=== PATIENT | male | born 1965 | race Caucasian/White ===

== ENCOUNTER → 2018-01-24 09:23 | Outpatient (CLI) | payer BC, SELFPAY ==
--- NOTE | 2018-01-24 | DI.RAD.S_ITS ---
PROCEDURE: XR HIP W PEL IF DONE RT 2V INDICATIONS: RIGHT HIP PAIN TECHNIQUE: AP pelvis with lateral view(s) of the right hip(s). COMPARISON: None. FINDINGS: Bones: No fractures or dislocations. Pelvic ring appears intact. No suspicious bony lesions. There are mild to moderate degenerative changes of the hip joints bilaterally as evidenced by joint space narrowing, periarticular sclerosis, and osteophyte formation. There are multilevel degenerative changes of the lumbar spine. Soft tissues: Surgical clips project medial and inferior to the inferior pubic rami bilaterally, possibly from prior vasectomy. The visualized bowel gas pattern is normal. No suspicious soft tissue calcifications. IMPRESSION: Mild to moderate degenerative changes of the hip joints bilaterally. Dictated by: Roberto Carlos Webster M.D. on 01/24/2018 at 12:44 Approved by: Roberto Carlos Webster M.D. on 01/24/2018 at 12:46
== END ==
PROVIDERS: Family Provider Family Medicine; PCP Family Medicine; Visit Provider Family Medicine
DX: M25.551 Pain in right hip (principal); M16.0 Bilateral primary osteoarthritis of hip
CPT/HCPCS: 73502

== ENCOUNTER → 2018-02-27 11:01 | Outpatient (CLI) | payer BC, SELFPAY ==
--- NOTE | 2018-02-27 | DI.US.S_ITS ---
PROCEDURE: US ABDOMEN COMPLETE INDICATIONS: ABNORMAL LFTS TECHNIQUE: Real-time scanning was performed of the abdominal and retroperitoneal organs, with image documentation. COMPARISON: None. FINDINGS: Liver: Liver is diffusely increased in echogenicity. No focal hepatic abnormalities identified. Normal hepatic size. Gallbladder: No gallstones identified. Normal gallbladder wall. No pericholecystic fluid. Negative sonographic Méndez sign. Biliary ducts: Intrahepatic bile ducts are non-dilated. Extrahepatic bile duct caliber measures 6.5 mm. Normal is 6-7 mm or less in diameter, or 10 mm or less post-cholecystectomy. Pancreas: Not visualized. Spleen: Spleen is normal in size and homogeneous in echotexture. Kidneys: Kidneys are normal in size and echotexture. Right kidney measures 9.7 cm long; left kidney measures 11.3 cm long. No hydronephrosis or nephrolithiasis. No solid masses. Aorta: Visualized aorta is normal in caliber at less than 3 cm. Iliacs: Proximal common iliac arteries are normal in caliber at less than 2.5 cm. IVC: Intrahepatic inferior vena cava is patent. Miscellaneous: No free abdominal fluid. IMPRESSION: Increased hepatic echogenicity noted possibly related to hepatic steatosis but other sources of hepatocellular disease cannot be excluded. Recommend clinical correlation. Dictated by: Torrey Archibald [facility] Interpreted: Gloria Coleman MD on 02/27/2018 at 13:07 Approved by: Gloria Coleman M.D. on 02/28/2018 at 9:09
--- NOTE | 2018-02-27 | DI.MRI.S_ITS ---
PROCEDURE: MR HIP RT WO CON INDICATIONS: RIGHT HIP PAIN TECHNIQUE: Noncontrast coronal T1 spin echo and STIR through the bony pelvis. Coronal and axial T2 fast spin echo with fat saturation, sagittal T1 spin echo, and oblique axial T2 fast spin echo with fat saturation through the hip. COMPARISON: None. FINDINGS: Image quality: Excellent. Bones and joints: Diffusely heterogeneous marrow signal throughout the pelvic bone and visualized lower lumbar vertebral bodies are seen. Mildly heterogeneous marrow signal in bilateral proximal femoral shafts are also seen. No cortical erosion or destruction. No periosteal reaction. No acute fracture or dislocation. Mild to moderate bilateral hip joint osteoarthritis is seen. No avascular necrosis of the femoral heads. Prominence of anterior femoral head neck junction is seen Tendons and ligaments: The gluteus medius and minimus tendons appear intact, without associated muscle atrophy. The nearby proximal iliotibial band also appears intact. The iliopsoas tendon appears intact, without adjacent bursal fluid collections or evidence for impingement syndrome. The origin of the hamstring tendon is intact at the ischial tuberosity, as well as the associated sacrotuberous ligament. The straight and reflected heads of the rectus femoris muscle origin appear intact, as well as the conjoint tendon. The ligamentum teres appears intact where visualized. Labrum and cartilage: There is suggestion of superior anterior right hip labral tearThe alpha angle of the femur is increased and measures approximately 105?. Normal limits in at less than 55 degrees. Soft tissues: Visualized muscles demonstrate normal bulk and internal signal. Quadratus femoris muscle demonstrates no internal edema to suggest ischiofemoral impingement. The proximal sciatic neurovascular bundle appears normal adjacent to the hamstring tendons. No free pelvic fluid. Bladder wall thickness is normal. Genitourinary structures and bowel loops appear normal where visualized. IMPRESSION: 1. Prominence of right anterior femoral head neck junction with increased alpha angle. Suggestive of cam-type femoral acetabular impingement. Suggestion of superior anterior right hip labral tear. 2. Osteoarthritic changes in the right hip joint. No fracture or dislocation. No evidence of avascular necrosis. 3. Nonspecific diffusely heterogeneous marrow signal throughout visualized bony pelvis and proximal bilateral femoral shafts as well as the lower lumbar spine vertebral bodies. Finding may represent hematopoietic marrow. Dictated by: Luan Figueroa M.D. on 02/27/2018 at 16:35 Approved by: Luan Figueroa M.D. on 02/27/2018 at 16:46
== END ==
PROVIDERS: Family Provider Family Medicine; PCP Family Medicine; Visit Provider Family Medicine
DX: M25.551 Pain in right hip (principal); M16.11 Unilateral primary osteoarthritis, right hip; R79.89 Other specified abnormal findings of blood chemistry
CPT/HCPCS: 73721; 76700

== ENCOUNTER → 2018-04-21 11:19 | Outpatient (CLI) | payer BC, SELFPAY | PROVIDERS: Family Provider Family Medicine; PCP Family Medicine; Visit Provider Family Medicine | DX: E29.1 Testicular hypofunction (principal) | CPT/HCPCS: 36415; 84403 ==

== ENCOUNTER → 2021-03-22 07:50 | Outpatient (CLI) | payer BC, SELFPAY ==
[2021-03-22 08:31] LABS: COVID19 -Nasal RAPID Negative (Negative)
== END ==
PROVIDERS: Visit Provider Nurse Practitioner Family
DX: Z20.822 Contact with and (suspected) exposure to COVID-19 (principal)
CPT/HCPCS: 87635

== ENCOUNTER → 2021-05-10 16:00 | Outpatient (CLI) | payer OTHER, SELFPAY ==
[2021-05-10 17:00] LABS: COVID19 -Nasal RAPID Negative (Negative)
== END ==
PROVIDERS: Visit Provider Family Medicine Sleep Medicine
DX: Z20.822 Contact with and (suspected) exposure to COVID-19 (principal)
CPT/HCPCS: 87635; C9803

== ENCOUNTER 2021-05-12 13:24 | Day surgery (SDC) | payer OTHER, SELFPAY ==
[2021-05-12] VITALS (8 sets, daily range): BP systolic 130–160; BP diastolic 75–104; PULSE 92–110; RESP 9–18; TEMP 36.3–37.1; O2SAT 4–98; BMI 31.6
--- NOTE | 2021-05-12 | PATH_ITS ---
[facility] Accession Number: [id number] . 01 Material submitted: . colon - SIGMOID #1,POLYP 4MM, #2 POLYP 1CM . 02 Diagnosis: Sigmoid x1, Polyp, 4 mm, #2 Polyp, 1 cm: Portions of tubular adenoma x3. Hyperplastic polyp x1. MRV 05/15/2021 1318 Local . 02 Electronically signed: . Deanna Lucero MD, Pathologist NPI- [id number] . 01 Gross description: . SIGMOID #1,POLYP 4MM, #2 POLYP 1CM: Received in formalin are multiple fragment(s) of castillo, soft tissue measuring 1.4 x 0.3 x 0.2 cm in aggregate submitted entirely in 1 cassette(s) /TR 05/13/2021 1703 Local . 02 Pathologist provided ICD-10: K63.5, Z12.11 . 02 CPT . 632228 Specimen Comment: A courtesy copy of this report has been sent to [phone] Performed at: 01 [facility] [address] [facility], [place], [place] [id number] MD Min Vallejo MD Phone: [phone] Performed at: 02 [facility] [address] [place], [place] [id number] MD Lili Palm MD Phone: [phone]
--- NOTE | 2021-05-12 12:30 | P.HP_ITS ---
History of Present Illness History of Present Illness Date Patient Seen: 05/12/21 Chief complaint: [facility] [place] Patient History Comment: 55 Years Old Male seen today for consideration of a screening colonoscopy. There have been no lower GI symptoms suggesting disease such as change in bowel habits, bleeding, abdominal pain or anemia. There's been no family history of colon cancer or colon polyps. Overall health issues have been stable, including no major cardiac events for at least 6 weeks. Past Medical History: Elevated LFTs HYPERLIPIDEMIA HYPERTENSION Testosterone deficiency Libido, decreased LUMBAR RADICULOPATHY Hip pain, right Obesity Past Surgical History: Right L4-5 hemilaminotomy x 2 L3-L4 surgery Septic hip (03/2003) Family History: Father: Diabetes, Hypertriglyceridemia, Hypertension Mother: Hypertriglyceriemia,Alzheimers Siblings: Social History: Marital Status: Children: Occupation: [employer], master captain Household Members: Dara (), dog Education: Medical contact: Dara Family & Social History Tobacco & Substance use: Smoking Status Former smoker Meds Home Medications and Allergies Home Medications Medication Instructions Recorded Confirmed Type losartan 50 mg tablet 100 mg PO QDAY #0 tab 01/14/05/12/21 History Allergies Allergy/AdvReac Type Severity Reaction Status Date / Time aspirin [ASPIRIN] Allergy Unknown Verified 05/12/21 14:17 dicloxacillin [DICLOXACILLIN] Allergy Unknown Verified 05/12/21 14:17 Penicillins [PENICILLINS] Allergy Unknown Verified 05/12/21 14:17 Review of Systems Review of Systems Narrative: All remaining ROS were reviewed and negative except as addressed. Exam Narrative Exam Narrative: GENERAL: Alert and oriented, appearing stated age and in no acute distress. HEENT: Head normocephalic/atraumatic. Extraocular movements intact. LUNGS: Clear to ausculation bilaterally, no wheezes, rhonchi or rales. CV: Normal S1 and S2 with regular rate and rhythm, no audible murmurs, rubs or gallops. ABDOMEN: Soft, non-tender, non-distended, no organomegaly. Positive bowel sounds. EXTREMITIES: No clubbing, cyanosis, or edema. NEURO: Cranial nerves II through XII grossly intact, no focal deficits. PSYCH: Alert and oriented x 3. SKIN: No concerning lesions. Assessment & Plan Assessment & Plan narrative: 1. Screening for colon cancer Plan for colonoscopy. The nature and character of the procedure as well as anticipated results were discussed. The possibility of not completing the procedure was also discussed. Possible complications including aspiration pneumonia, bleeding, perforation and reaction to medications either for sedation or preparation and missed lesions were discussed. Questions were answered and proceeding to the colonoscopy was elected. Informed consent signed. I sincerely appreciate the referral allowing me to participate in this patient's care. Please contact me with any questions or concerns.
--- NOTE | 2021-05-12 12:34 | PM.OP.COLON ---
Operative Date/Time/Diagnoses Date of procedure: 05/12/21 Procedure Notes SCOAP/Timeout: 3:04 p.m. Procedure in detail: ENDOSCOPIST: Allyn Lucas MD Sedation RN: Carmen Cordova RN Sedation start time: 3:05 p.m. Sedation end time: 3:48 p.m. PROCEDURE: Colonoscopy with biopsy INDICATIONS: 1. Screening for colon cancer MEDICATION: Levsin 0.125 mg sublingual, incremental doses of Versed and fentanyl until appropriate level sedation achieved. ASA CLASS: 2 CECAL WITHDRAWAL TIME: 19 minutes COMPLICATIONS: None. EXTENT OF PROCEDURE: Cecum. QUALITY OF PREP: Good with portions of liquid stool. PROCEDURE: Prior to insertion of the colonoscope, a digital rectal examination was accomplished with circumferential palpation of the distal rectal mucosa without significant findings being noted. The high-definition colonoscope was passed into the rectum in the usual fashion and advanced over to the cecum without difficulty. The ileocecal valve, appendiceal stoma, and medial wall all could be inspected and no abnormalities were seen. ASCENDING COLON: As the colonoscope was withdrawn, care was taken to expose and inspect the haustral folds and no abnormalities were seen. HEPATIC FLEXURE: Normal, no polyps, diverticula or other abnormalities. TRANSVERSE COLON: Normal, no polyps, diverticula or other abnormalities. DESCENDING COLON: Normal, no polyps, diverticula or other abnormalities. SIGMOID COLON: A 4 mm polyp was seen and removed with cold biopsy forceps, a 1 cm polyp was seen and removed in a similar fashion, excellent hemostasis. Otherwise, no diverticulosis or other abnormalities. RECTUM: Normal. J maneuver was produced. There was no significant perianal disease. The J maneuver was broken. The remainder of the rectum was inspected and there was moderate external hemorrhoid disease. The scope was withdrawn. IMPRESSION: 1. Sigmoid polyp x2, 4 mm to 10 mm, removed with cold biopsy forceps from excellent hemostasis 2. External hemorrhoids, nonthrombosed PLAN: 1. Follow-up in clinic status post pathology results. The possibility of a missed lesion including a malignancy has been discussed with the patient previously. Potential alarm symptoms have been discussed and should be reported immediately.
[2021-05-12] MEDS: LACTATED RINGERS 1,000 ML 200 ML IV ×2 (14:10→16:52)
[2021-05-12] MEDS: fentaNYL 250 MCG/5 ML INJ IV (15:29)
[2021-05-12] MEDS: MIDAZOLAM 5 MG/5 ML VIAL IV (15:29)
--- NOTE | 2021-05-12 16:18 | SUR.PHASEI ---
Addendum entered by Marya Jaramillo R.N. 05/12/21 16:45: 1630-Arouses briefly, speaks few words, returns to sleep. 1635-Report off to Helena Drake RN. Original Note: 05/12/21-1615-Dr. Lucas here and made aware of patinet unresponsive to stimuli, and rt arm swollen/iv infiltrated. iv out . new iv placed left forearm / wrist area and ivf resumed. 1625-repositioned airway. patient beginning to arouse to stimuli,attempt to reorient. fell back asleep.
--- NOTE | 2021-05-12 16:48 | SUR.PHASEI ---
Assumed care of patient at 1640 from Freida Patten; patient sedated still but responsive to verbal stimuli; drinking juice when prompted. Abdomen soft, non-distended. Right forearm slightly swollen from IV infiltration during procedure. Patient denies pain and no redness or drainage noted. Removed patient from oxygen via nasal cannula at 4 liters to assess room air saturation.
--- NOTE | 2021-05-12 16:56 | SUR.PREOP ---
Patient maintaining oxygen saturation at 93% on room air. RR even and unlabored with a rate of 12. No distress noted.VSS.
== END 2021-05-12 17:24 | disposition home or self-care (01) ==
PROVIDERS: PCP Student in an Organized Health Care Education/Training Program; Referring Provider Student in an Organized Health Care Education/Training Program; Visit Provider Student in an Organized Health Care Education/Training Program
PROC: 0DJD8ZZ Inspection of Lower Intestinal Tract, Via Natural or Artificial Opening Endoscopic (ICD-10-PCS; CPT 45378; principal; 2021-05-12 15:15)
DX: Z12.11 Encounter for screening for malignant neoplasm of colon (principal); I10 Essential (primary) hypertension; E78.5 Hyperlipidemia, unspecified; D12.5 Benign neoplasm of sigmoid colon
CPT/HCPCS: 45380; J2250; J3010

== ENCOUNTER → 2022-03-07 07:48 | Outpatient (CLI) | payer OTHER, SELFPAY ==
--- NOTE | 2022-03-07 | DI.ECHO.S_ITS ---
[facility] +---------+ : : [address] : [place] [address] : : : : [id number] : : : : Phone: [phone]+ Echocardiogram Report + + :Name: CAROLYN COTTRELL Study Date: 03/07/2022 Height: 70 in : :[facility] ReadingLocation: Weight: 215 lb : : Gender: Male BSA: 2.2 m2 : :: 1965 Age: 56 yrs BP: 145/82 mmHg: :Reason For Study: ABNL EKG : : Performed By: Gómez Cortés : :Referring: DEWEY EDWARDS : + + Interpretation Summary 1) Mildly increased left ventricular thickness (concentric) with normal size, normal wall motion, and normal systolic function (EF 60-65%). 2) Normal right ventricular size and function. 3) No significant valvular abnormalities. 4) No prior Echo available for comparison. Procedure: A two-dimensional transthoracic echocardiogram with color flow and Doppler was performed. The study quality was technically adequate. Comparison is made with the echocardiogram of 01/28/09. The patient was in normal sinus rhythm during the exam. Left Ventricle: The left ventricle is normal in size. Left ventricular wall thickness is mildly increased. There is no echo evidence for significant left ventricular outflow tract obstruction. The ejection fraction is estimated to be 60-65%. There are no focal wall motion abnormalities. Diastolic parameters suggest a relaxation abnormality of the left ventricle, consistent with probable normal filling pressures. Right Ventricle: The right ventricle is normal in size and function. Atria: Both atria are normal in size. There is no Doppler evidence for an atrial septal defect. Mitral Valve: There is mild mitral annular calcification. There is trace mitral regurgitation. Aortic Valve: The aortic valve opens well. There is no aortic valve stenosis. No aortic regurgitation is present. Tricuspid Valve: The tricuspid valve is normal in structure and function. No tricuspid regurgitation. Pulmonary artery pressures cannot be estimated because of the lack of a measurable TR jet velocity but the IVC suggests a CVP of around 3 mmHg. Pulmonic Valve: The pulmonic valve leaflets are thin and pliable; valve motion is normal. There is no pulmonic valvular regurgitation. Great Vessels: The aortic root is normal size. The dimensions of the ascending aorta are normal. The pulmonary artery is normal size. The IVC is of normal diameter and collapses greater than 50% with a sniff. This suggests a low right atrial pressure of 3 mm Hg. Pericardium/ Pleura There is no pericardial effusion. There is no pleural effusion. MMode/2D Measurements & Calculations LVIDd: 4.5 cm LVOT diam: 2.1 cm LVIDs: 3.0 cm Ao root diam: 3.2 cm FS: 32.3 % asc Aorta Diam: 3.1 cm EPSS: 0.24 cm Ao Arch Diam (Prox Trans): 3.0 cm IVSd: 1.1 cm LVPWd: 1.4 cm LV sevilla. diameter/BSA (cm/m^2): 2.1 LV sys. diameter/BSA (cm/m^2): 1.4 LA A2 area: 20.3 cm2 RA long axis: 4.9 cm LA A4 area: 24.6 cm2 RA area: 16.0 cm2 LA length (vol): 6.2 cm RA vol: 44.7 ml LA vol: 68.6 ml RA : 20.8 ml/m2 LA vol index: 31.9 ml/m2 IVC diam: 2.0 cm TAPSE: 1.9 cm Doppler Measurements & Calculations Ao V2 max: 159.1 cm/sec LVOT Max Ten: 131.1 cm/sec Ao V2 mean: 123.5 cm/sec LV V1 max P.9 mmHg Ao max P.1 mmHg LV V1 VTI: 23.0 cm Ao mean P.5 mmHg RICHARD(I,D): 3.0 cm2 Ao V2 VTI: 27.3 cm RICHARD(V,D): 2.9 cm2 sev ratio: 0.84 RICHARD indexed to BSA (cm^2/m^2): 1.4 MV E max ten: 61.5 cm/sec PA V2 max: 107.0 cm/sec MV A max ten: 82.6 cm/sec PA V2 mean: 75.2 cm/sec MV E/A: 0.75 PA mean P.5 mmHg Med Peak E' Ten: 4.7 cm/sec PA pr(Accel): 46.5 mmHg E/E' med: 13.0 Lat Peak E' Ten: 6.5 cm/sec E/E' lat: 9.5 E/e' average: 11.2 MV dec time: 0.23 sec SV(LVOT): 82.1 ml Reading Physician:12:33 PM
== END ==
PROVIDERS: PCP Registered Nurse; Referring Provider Registered Nurse; Visit Provider Registered Nurse
DX: R94.31 Abnormal electrocardiogram [ECG] [EKG] (principal); I34.81 Nonrheumatic mitral (valve) annulus calcification
CPT/HCPCS: 93306

== ENCOUNTER → 2022-03-14 09:49 | Outpatient (CLI) | payer OTHER, SELFPAY ==
[2022-03-14 10:28] LABS: COVID19 -Nasal RAPID Negative (Negative)
== END ==
PROVIDERS: PCP Registered Nurse; Referring Provider Radiology Diagnostic Radiology; Visit Provider Radiology Diagnostic Radiology
DX: Z20.822 Contact with and (suspected) exposure to COVID-19 (principal)
CPT/HCPCS: 87635; C9803

== ENCOUNTER → 2022-03-15 07:23 | Outpatient (CLI) | payer OTHER, SELFPAY ==
--- NOTE | 2022-03-15 20:08 | DI.NM.S_ITS ---
DATE OF SERVICE: 03/15/2022 PROCEDURE: Exercise stress test. INDICATION: Abnormal EKG with underlying hypertension, hyperlipidemia, prediabetes. CARDIAC STRESS: The patient underwent exercise stress test under the supervision of an attending staff using standard Maykel protocol. He walked on Maykel protocol for 6 minutes. He could not walk further because of fatigue and hip disability. Baseline blood pressure was 158/90 mmHg and peak blood pressure 240/76 mmHg, suggestive of hypertensive blood pressure response. Baseline rhythm was sinus and up to 0.[address] depression and T-wave inversion in inferior leads and lead V6. During stress, there was improvement in T-wave inversion in those leads. No new ST depression or obvious ischemic changes. No significant arrhythmias. No ischemic symptoms of claudication. The patient achieved 7 METs of workload. NHUNG positive 10 percent. CONCLUSION: Exercise stress test is negative for obvious inducible ischemia. No significant arrhythmias. Baseline EKG changes, as stated above. Hypertensive blood pressure response. Peak blood pressure 240/76. Functional aerobic impairment positive 10 percent and 7 metabolic equivalents of workload with diminished exercise tolerance. No significant arrhythmias seen. Overall, low-risk exercise stress test. Lalit Alexandro - TYREE/michelle/gardenia doc#: [id number]/job#: [id number] dd: 03/15/2022 17:18:00 dt: 03/15/2022 19:06:00 DICTATING /COPIES TO: Abbi Cruz MD COPIES MNE: SONDRA;
== END ==
PROVIDERS: PCP Registered Nurse; Referring Provider Registered Nurse; Visit Provider Registered Nurse
DX: R94.31 Abnormal electrocardiogram [ECG] [EKG] (principal); I10 Essential (primary) hypertension; E78.5 Hyperlipidemia, unspecified
CPT/HCPCS: 93017

== ENCOUNTER → 2024-06-01 07:06 | Outpatient (CLI) | payer BC, SELFPAY ==
[2024-06-01 08:08] LABS: Add Manual Diff / Slide Review NO; Basophils Absolute Auto 100 /uL (0-100); Basophils Percent Auto 1.2 % (0-2); Eosinophils Absolute Auto 300 /uL (0-450); Eosinophils Percent Auto 7.6 % (2-4); Hematocrit 49.2 % (41-53); Hemoglobin 16.5 g/dL (13.5-17.5); Lymphocytes Absolute Auto 1400 /uL (1100-4500); Lymphocytes Percent Auto 31.7 % (25-40); Mean Corpuscular HGB Conc 33.5 % (30-36); Mean Corpuscular Volume 80.8 fL (80-100); Monocytes Absolute Auto 500 /uL (0-900); Neutrophils Absolute Auto 2200 /uL (1500-7000); Neutrophils Percent Auto 48.5 % (50-75); Platelet Count 190 X10^3/uL (150-400); Red Blood Cell Count 6.09 X10^6/uL (4.5-5.9); Red Cell Distribution Width 16.2 % (11.6-14.8); White Blood Cell Count 4.5 X10^3/uL (4.5-11.0)
[2024-06-01 08:21] LABS: Hemoglobin A1C% w Est Avg Glu 5.2 % (4.0-6.0)
[2024-06-01 08:30] LABS: Alanine Aminotransferase 69 IU/L (<50); Albumin 4.8 g/dL (3.5-5.0); Albumin Globulin Ratio 2.2 (1.0-2.8); Alkaline Phosphatase 49 U/L (38-126); Aspartate Aminotransferase 54 IU/L (17-59); BUN Creatinine Ratio 15.7 (6-22); Bilirubin Total 0.7 mg/dL (0.2-1.3); Blood Urea Nitrogen 17 mg/dL (9-20); Calcium 9.7 mg/dL (8.4-10.2); Carbon Dioxide 28 mmol/L (22-32); Chloride 101 mmol/L (98-107); Cholesterol 232 mg/dL (140-199); Estimated Glomerular Filt Rate > 60 mL/min (>60); Globulin 2.2 g/dL (1.7-4.1); Glucose 91 mg/dL (80-110); HDL Cholesterol 29 mg/dL (40-60); HEMOLYSIS < 15 (0-50); LDL Cholesterol Calculated 146 mg/dL (<100); Potassium 4.7 mmol/L (3.4-5.1); Sodium 137 mmol/L (137-145); Triglycerides 284 mg/dL (35-150)
== END ==
PROVIDERS: PCP Family Medicine; Referring Provider Family Medicine; Visit Provider Family Medicine
DX: Z13.220 Encounter for screening for lipoid disorders (principal); Z68.31 Body mass index [BMI] 31.0-31.9, adult; Z76.89 Persons encountering health services in other specified circumstances; Z84.0 Family history of diseases of the skin and subcutaneous tissue; Z79.890 Hormone replacement therapy; I10 Essential (primary) hypertension
CPT/HCPCS: 36415; 80053; 80061; 83036; 85025